=== PATIENT | female | born 1960 | race Caucasian/White ===

== ENCOUNTER 2016-05-12 18:11 | Emergency (ER) | payer MEDICAID ==
[~2016-05-12] VITALS: Ht 170.2 cm; Wt 68.0 kg
[2016-05-12 18:14] VITALS: BP 118/82; PULSE 77; RESP 16; TEMP 98.4; O2SAT 97
--- NOTE | 2016-05-12 18:14 | NUR ---
Patient triaged and placed in waiting room. VSS and patient appears in no acute distress at this time. Accompanied by self, awaiting available bed, and MD notified of need for MSE.
--- NOTE | 2016-05-12 19:20 | NUR ---
Placed in room 02 . Placed on debarker operator, blood pressure machine and pulse oximeter. To gown for exam. Side rails up. Report given to JUAN Marie.
--- NOTE | 2016-05-12 19:23 | NUR ---
Patient to ER C/O severe lower back pain 9/10 radiating to right leg for the past 3 days. Patient states the last sciatica flareup was more than 1 year ago. AAOx4, unlabored breathing, no signs of acute distress.
--- NOTE | 2016-05-12 19:47 | NUR ---
ER QUENTIN Collazo at bedside for evaluation
[2016-05-12] MEDS ORDERED: DIPHENHYDRAMINE INJ 50 MG/ML VIAL IM ONE (20:00)
[2016-05-12] MEDS ORDERED: MORPHINE SULFATE 10 MG/ML VIAL IM ONE (20:00)
--- NOTE | 2016-05-12 20:17 | NUR ---
Patient declined Morphine & Benadryl, states "i can not get a ride back home, can i get something else instead?" ER ADOPTION COUNSELOR Vale
[2016-05-12] MEDS ORDERED: KETOROLAC TROMETHAMINE 60 MG/2 ML VIAL IM ONE (20:30)
[2016-05-12 21:00] VITALS: BP 117/76; PULSE 73; RESP 16; TEMP 98.2; O2SAT 98
--- NOTE | 2016-05-12 21:00 | NUR ---
Patient given written and verbal discharge instructions and verbalizes understanding. ER AUTOMOBILE TIRE BUILDER Rhiannon discussed with patient the results and treatment provided. Patient in stable condition. ID arm band removed. Rx of tramadol & medrol given. Patient educated on pain management and to follow up with PMD. Pain Scale 0/10. Opportunity for questions provided and answered.
== END 2016-05-12 21:00 | disposition home or self-care (01) ==
LOC: SED 18:11
DX: M54.41 Lumbago with sciatica, right side (principal); F17.210 Nicotine dependence, cigarettes, uncomplicated; J44.9 Chronic obstructive pulmonary disease, unspecified; Z98.890 Other specified postprocedural states; Z88.1 Allergy status to other antibiotic agents
CPT/HCPCS: 96372; 99283; J1885; J1200; J2270

== ENCOUNTER 2016-07-21 13:32 | Emergency (ER) | payer MEDICAID ==
[~2016-07-21] VITALS: Ht 170.2 cm; Wt 77.1 kg
[2016-07-21 14:10] VITALS: BP_SYST 122
--- NOTE | 2016-07-21 15:25 | NUR ---
Patient to ER [place] [facility] to [facility] for evaluation. Side rails up. Report given to Fernanda MARTINEZ.
--- NOTE | 2016-07-21 15:28 | NUR ---
Vale Jurado PASSENGER TIRE INSPECTOR at bedside examining patient
--- NOTE | 2016-07-21 15:28 | NUR ---
Pt brought by self, A&Ox4, pt c/o right flank pain 07/06, states she had previous exams and indicated mild obstruction, skin pink and warm,cap refill <3, VSS, denies urinary symptoms, denies bleeding, pt requesting [place] prescription .
--- NOTE | 2016-07-21 15:29 | NUR ---
Pt sitting in hallway, no distress noted, VS WNL.
[2016-07-21] MEDS ORDERED: KETOROLAC TROMETHAMINE 60 MG/2 ML VIAL IM ONE (15:30)
[2016-07-21 16:02] VITALS: BP_SYST 118
--- NOTE | 2016-07-21 16:39 | NUR ---
Patient given written and verbal discharge instructions and verbalizes understanding. ER MD discussed with patient the results and treatment provided. Patient in stable condition. ID arm band removed. Pt refused to sign discharge paperwork Rx of Vinod given. Patient educated on pain management and to follow up with PMD. Pain Scale 10. Opportunity for questions provided and answered. Addendum: 07/21/16 at 1641 by [email or web address] Pt upset requesting something stronger than mobic, patient requesting [place] prescription at this time, ELECTION CLERK aware.
== END 2016-07-21 16:02 | disposition home or self-care (01) ==
LOC: SED 13:32
DX: R10.9 Unspecified abdominal pain (principal); J44.9 Chronic obstructive pulmonary disease, unspecified; F17.210 Nicotine dependence, cigarettes, uncomplicated; Z88.1 Allergy status to other antibiotic agents; Z90.89 Acquired absence of other organs
CPT/HCPCS: 96372; 99283; J1885

== ENCOUNTER 2022-12-27 11:13 | Emergency (ER) | payer MEDICAID ==
[~2022-12-27] VITALS: Ht 165.1 cm; Wt 63.5 kg
[2022-12-27 11:13] VITALS: BP_SYST 164; PULSE 80; RESP 18; TEMP 97.8; O2SAT 96
[2022-12-27] MEDS ORDERED: LIDOCAINE 1% 10 MG/ML, 20 ML MDV INJ ONE (11:30)
[2022-12-27] MEDS ORDERED: BACITRACIN 1 GM OINT TP ONE (11:30)
[2022-12-27] MEDS ORDERED: DIPHTH,PERTUSS(ACELL),TET VAC 0.5 ML VIAL (Tdap) I.M. ONE (11:30)
[2022-12-27 12:26] LABS: BASOPHILS % (AUTO) 0.6 % (0.0-2.0); EOSINOPHILS # (AUTO) 0.1 K/uL (0.0-0.4); EOSINOPHILS % (AUTO) 2.3 % (0.0-4.0); HEMATOCRIT 33.3 % (36-48); HEMOGLOBIN 10.1 g/dL (12.0-16.0); LYMPHOCYTES # (AUTO) 1.8 K/uL (1.0-5.5); LYMPHOCYTES % (AUTO) 29.5 % (20.5-51.5); MEAN CORPUSCULAR HEMOGLOBIN 24 pg (27-31); MEAN CORPUSCULAR HGB CONC 30 % (32-36); MEAN CORPUSCULAR VOLUME 77 fL (79.0-98.0); MONOCYTES # (AUTO) 0.4 K/uL (0.0-1.0); MONOCYTES % (AUTO) 7.2 % (1.7-9.3); NEUTROPHILS # (AUTO) 3.6 K/uL (1.8-7.7); NEUTROPHILS % (AUTO) 60.4 % (40.0-70.0); PLATELET COUNT (AUTO) 372 K/uL (130-430); RED BLOOD CELL COUNT(AUTO) 4.32 MIL/uL (4.2-6.2); RED CELL DISTRIBUTION WIDTH 16.6 % (9.0-15.0)
[2022-12-27 12:28] LABS: CALCIUM 9.1 mg/dL (8.4-11.0); CREATININE 0.87 mg/dL (0.55-1.30)
[2022-12-27 12:42] LABS: ALBUMIN 3.3 g/dL (3.4-4.8); TOTAL BILIRUBIN 0.2 mg/dL (0.0-1.0); TOTAL PROTEIN, SERUM 8.2 g/dL (6.4-8.3)
[2022-12-27] MEDS ORDERED: CLIN-142 PO (13:20)
[2022-12-27 13:59] VITALS: BP_SYST 164; PULSE 80; RESP 18; TEMP 97.8; O2SAT 96
== END 2022-12-27 13:54 | disposition home or self-care (01) ==
LOC: SED 11:13
DX: L02.211 Cutaneous abscess of abdominal wall (principal); J44.9 Chronic obstructive pulmonary disease, unspecified; Z88.1 Allergy status to other antibiotic agents; Z79.899 Other long term (current) drug therapy
CPT/HCPCS: 99283; 10060; 80053; 85025; 87040; 36415; 90715; 83605; 90471; 82397; J2001

== ENCOUNTER → 2023-01-24 | Emergency (ER) | payer MEDICAID ==
[~2023-01-24] VITALS: Ht 170.2 cm; Wt 68.0 kg
[~2023-01-24] MED LIST: CLIN-142 PO; IPRATROPIUM/ALBUTEROL SULFATE 3 ML AMPUL.NEB (DUONEB) INH ONE
[2023-01-24 19:05] VITALS: BP_SYST 115; PULSE 94; RESP 24; TEMP 97.4; O2SAT 96
[2023-01-24 20:34] LABS: ANION GAP 6 (5-15); CALCIUM 9.2 mg/dL (8.4-11.0); CARBON DIOXIDE 30 mmol/L (23-29); CHLORIDE 101 mmol/L (98-107); CREATININE 0.91 mg/dL (0.55-1.30); GFR AFRICAN AMERICAN 81 mL/min (>90); GLUCOSE 108 mg/dL (74-106); POTASSIUM 3.7 mmol/L (3.5-5.1); SODIUM SERUM 137 mmol/L (136-145); UREA NITROGEN, BLOOD 16 mg/dL (8-21)
[2023-01-24 20:36] LABS: GFR NON AFRICAN-AMERICAN 67 mL/min (>90)
[2023-01-24 20:37] LABS: BASOPHILS % (AUTO) 0.5 % (0.0-2.0); EOSINOPHILS # (AUTO) 0.2 K/uL (0.0-0.4); EOSINOPHILS % (AUTO) 1.7 % (0.0-4.0); HEMATOCRIT 30.7 % (36-48); HEMOGLOBIN 9.5 g/dL (12.0-16.0); LYMPHOCYTES # (AUTO) 2.8 K/uL (1.0-5.5); MEAN CORPUSCULAR HEMOGLOBIN 23 pg (27-31); MEAN CORPUSCULAR HGB CONC 31 % (32-36); MEAN CORPUSCULAR VOLUME 74 fL (79.0-98.0); MONOCYTES # (AUTO) 0.6 K/uL (0.0-1.0); MONOCYTES % (AUTO) 5.9 % (1.7-9.3); NEUTROPHILS # (AUTO) 6.1 K/uL (1.8-7.7); NEUTROPHILS % (AUTO) 62.9 % (40.0-70.0); RED BLOOD CELL COUNT(AUTO) 4.14 MIL/uL (4.2-6.2); RED CELL DISTRIBUTION WIDTH 16.7 % (9.0-15.0); WHITE BLOOD COUNT (AUTO) 9.8 K/uL (4.8-10.8)
[2023-01-24 20:50] LABS: PLATELET COUNT (AUTO) 330 K/uL (130-430)
[2023-01-24 20:51] LABS: ANISOCYTOSIS 1+; HYPOCHROMASIA 1+; OVALOCYTES FEW
[2023-01-24 21:08] LABS: ALANINE AMINOTRANSFERASE 19 U/L (12-78); ASPARTATE AMINOTRANSFERASE 30 U/L (10-37); TOTAL BILIRUBIN 0.2 mg/dL (0.0-1.0)
[2023-01-24 21:10] LABS: COVID19 ANTIGEN SOFIA FIA NEGATIVE (NEGATIVE)
[2023-01-24 21:11] LABS: INFLUENZA TYPE A Negative (NEGATIVE); INFLUENZA TYPE B NEGATIVE (NEGATIVE)
[2023-01-24 21:44] VITALS: BP_SYST 115; PULSE 80; RESP 20; TEMP 98; O2SAT 91
== END | disposition home or self-care (01) ==
LOC: SED 18:56
DX: J44.9 Chronic obstructive pulmonary disease, unspecified (principal); R05.9 Cough, unspecified; R06.02 Shortness of breath; Z88.1 Allergy status to other antibiotic agents; Z79.899 Other long term (current) drug therapy; Z20.822 Contact with and (suspected) exposure to COVID-19
CPT/HCPCS: 36415; 71045; 80053; 83605; 83880; 84484; 85025; 94640; 99284

== ENCOUNTER 2023-01-31 00:35 | Emergency (ER) | payer MEDICAID ==
[~2023-01-31] VITALS: Ht 170.2 cm; Wt 52.2 kg
[~2023-01-31 00:35] MED LIST changes: -IPRATROPIUM/ALBUTEROL SULFATE 3 ML AMPUL.NEB (DUONEB) INH ONE
[2023-01-31 00:51] VITALS: BP_SYST 140; PULSE 87; RESP 20; TEMP 97.9; O2SAT 92
[2023-01-31] MEDS ORDERED: MAGNESIUM SULFATE 50 ML IV ONE (01:00)
[2023-01-31] MEDS ORDERED: cefTRIAXone 1 GM IVPB PREMIX 50 ML IV ONE (01:00)
[2023-01-31] MEDS ORDERED: methylPREDNISolone SOD SUCC/PF 62.5 MG/ML VIAL IVP ONE (01:00)
[2023-01-31] MEDS ORDERED: IPRATROPIUM/ALBUTEROL SULFATE 3 ML AMPUL.NEB (DUONEB) INH ONE (01:00)
[2023-01-31] MEDS ORDERED: ALBUTEROL SULFATE 0.083% 2.5 MG/3 ML VIAL.NEB INH ONE (01:00)
[2023-01-31] MEDS ORDERED: AZITHROMYCIN 500 MG in NS 250 ML IV ONE (01:00)
[2023-01-31] MEDS ORDERED: AZITHROMYCIN 500 MG/VIAL (ZITHROMAX) IV ONE (01:10)
[2023-01-31 01:24] LABS: BASOPHILS % (AUTO) 0.3 % (0.0-2.0); EOSINOPHILS % (AUTO) 0.3 % (0.0-4.0); HEMATOCRIT 29.7 % (36-48); HEMOGLOBIN 9.4 g/dL (12.0-16.0); LYMPHOCYTES # (AUTO) 1.9 K/uL (1.0-5.5); LYMPHOCYTES % (AUTO) 14.7 % (20.5-51.5); MEAN CORPUSCULAR HEMOGLOBIN 23 pg (27-31); MEAN CORPUSCULAR HGB CONC 32 % (32-36); MEAN CORPUSCULAR VOLUME 74 fL (79.0-98.0); MONOCYTES # (AUTO) 1.3 K/uL (0.0-1.0); MONOCYTES % (AUTO) 10.2 % (1.7-9.3); NEUTROPHILS # (AUTO) 9.9 K/uL (1.8-7.7); NEUTROPHILS % (AUTO) 74.5 % (40.0-70.0); PLATELET COUNT (AUTO) 411 K/uL (130-430); RED BLOOD CELL COUNT(AUTO) 4.04 MIL/uL (4.2-6.2); RED CELL DISTRIBUTION WIDTH 16.5 % (9.0-15.0); WHITE BLOOD COUNT (AUTO) 13.3 K/uL (4.8-10.8)
[2023-01-31 01:31] LABS: CALCIUM 8.9 mg/dL (8.4-11.0); CREATININE 0.73 mg/dL (0.55-1.30); POTASSIUM 3.4 mmol/L (3.5-5.1)
[2023-01-31 01:36] LABS: ALBUMIN 2.9 g/dL (3.4-4.8); TOTAL BILIRUBIN 0.4 mg/dL (0.0-1.0); TOTAL PROTEIN, SERUM 7.5 g/dL (6.4-8.3)
[2023-01-31 01:54] LABS: BLOOD GAS PCO2 40.3 mmHg (35.0-45.0)
[2023-01-31 01:55] LABS: ABG O2 SAT% ESTIMATE 81.8 % (94.0-100.0); BLOOD GAS BASE EXCESS 1.8 mmol/L (-3.0-3.0); BLOOD GAS HCO3 26.3 mmol/L (21.0-27.0); BLOOD GAS PO2 44.5 mmHg (75.0-100.0)
[2023-01-31 01:56] LABS: ALLEN'S TEST YES (P)
[2023-01-31 04:58] VITALS: BP_SYST 127; PULSE 67; RESP 14; TEMP 97.9; O2SAT 92
[2023-01-31] MEDS ORDERED: CEFU250T85 PO (07:26)
== END 2023-01-31 07:42 | disposition left against medical advice (07) ==
LOC: SED 00:35
DX: J44.1 Chronic obstructive pulmonary disease with (acute) exacerbation (principal); J18.1 Lobar pneumonia, unspecified organism; R06.02 Shortness of breath; R05.9 Cough, unspecified; R50.9 Fever, unspecified; Z88.1 Allergy status to other antibiotic agents; Z79.899 Other long term (current) drug therapy; Z20.822 Contact with and (suspected) exposure to COVID-19
CPT/HCPCS: 99284; 96365; 71045; 96375; 87426; 80053; 85025; 87040; 36415; 94640; 36600; 82803; 96368; 83605; J0456; J0696; J3475; J2930